=== PATIENT | male | born 1945 | race Caucasian/White ===

== ENCOUNTER → 2016-11-09 | Outpatient (CLI) | payer MEDICARE, OTHER ==
--- NOTE | 2016-11-09 13:32 | RAD ---
Right lower extremity venous Doppler ultrasound History: Right lower extremity inflammation and redness. Comparison: None. Procedure: Color Doppler, spectral Doppler, and grayscale images are obtained with and without compression in the area of the common femoral vein, superficial femoral vein - femoral vein junction, main femoral vein (superficial femoral vein) and popliteal vein. Veins of the proximal calf are also imaged. Findings: There is normal duplex flow, color flow and compressibility of all visualized vein segments. No evidence of deep venous thrombosis is present. Impression: No evidence of right lower extremity deep venous thrombosis.
== END | disposition home or self-care (01) ==
LOC: US 12:31
PROVIDERS: ATTEND Family Medicine
DX: M79.604 Pain in right leg (principal); M79.89 Other specified soft tissue disorders
CPT/HCPCS: 93971

== ENCOUNTER → 2017-02-26 | Outpatient (CLI) | payer MEDICARE, OTHER ==
--- NOTE | 2017-02-27 07:15 | RAD ---
Right lower extremity venous ultrasound, 02/26/2017 : History: Right leg swelling Duplex evaluation including grayscale, color flow and spectral Doppler analysis was performed. The femoral and popliteal veins show no filling defects to suggest DVT. The visualized deep veins in the right calf are unremarkable. IMPRESSION: There is no sonographic evidence of deep vein thrombosis in the right lower extremity
== END | disposition home or self-care (01) ==
LOC: US 17:34
PROVIDERS: ATTEND Family Medicine
DX: M79.89 Other specified soft tissue disorders (principal)
CPT/HCPCS: 93971

== ENCOUNTER 2017-05-31 17:21 | Inpatient (IN) | payer MEDICARE, OTHER ==
[~2017-05-31] VITALS: Ht 180.3 cm; Wt 108.9 kg
[2017-05-31] MEDS ORDERED: ACETAMINOPHEN 325 MG TABLET. PO PRN (19:45)
[2017-05-31] MEDS ORDERED: ONDANSETRON PF 4 MG/2 ML VIAL. IV PRN (19:45)
[2017-05-31] MEDS ORDERED: FUROSEMIDE 40 MG/4 ML VIAL. IVP ONE (20:30)
[2017-05-31 21:37] LABS: BILIRUBIN,URINE NEGATIVE (NEG); GLUCOSE,URINE NEGATIVE (NEG); NITRITE,URINE NEGATIVE (NEG); PH,URINE 6.5; PROTEIN,URINE NEGATIVE (NEG-TRACE); UROBILINOGEN,URINE 0.2 mg/dL (0.2 mg/dL)
[2017-05-31 21:41] LABS: BACTERIA,URINE 0 /HPF (0-FEW); RBC,URINE 0 /HPF (0-2); WBC,URINE 0 /HPF (0-4)
[2017-05-31 23:00] VITALS: BP 123/82
[2017-06-01] VITALS (7 sets, daily range): BP systolic 118–155; BP diastolic 52–87
[2017-06-01 00:06] LABS: ALBUMIN 3.3 g/dL (3.4-5.0); ALBUMIN/GLOBULIN RATIO 0.8 (1.0-1.7); CALCIUM 8.4 mg/dL (8.5-10.1); CREATININE 0.9 mg/dL (0.7-1.3); GFR 83.4; POTASSIUM 4.3 mmol/L (3.5-5.1); TOTAL BILIRUBIN 0.5 mg/dL (0.2-1.0); TOTAL PROTEIN 7.3 g/dL (6.4-8.2)
[2017-06-01] MEDS ORDERED: FURO40TA4 PO (02:09)
[2017-06-01 05:14] LABS: BASO # 0.1 x10^3/uL (0.0-0.2); BASO % 1 % (0-3); EOS % 2 % (0-3); HEMATOCRIT 37.3 % (39.0-53.0); HEMOGLOBIN 11.8 g/dL (13.0-17.5); LYMPH # 1.1 x10^3/uL (1.0-4.8); LYMPH % 11 % (24-48); MEAN CORPUSCULAR HEMOGLOBIN 27 pg (25-35); MEAN CORPUSCULAR HGB CONC 32 g/dL (31-37); MEAN CORPUSCULAR VOLUME 86 fL (79-100); MONO % 11 % (0-9); NEUT % 75 % (31-73); PLATELET COUNT 192 x10^3/uL (140-400); RED BLOOD COUNT 4.34 x10^6/uL (4.30-5.70); WHITE BLOOD COUNT 9.6 x10^3/uL (4.0-11.0)
[2017-06-01] MEDS: FUROSEMIDE 40 MG TABLET. PO SCH (09:54)
--- NOTE | 2017-06-01 10:40 | RAD ---
CHEST AP ONLY Clinical Indication: short of air Comparison: CT chest dated 12/07/2015 Findings: Unchanged elevation of the left hemidiaphragm. Left basilar heterogenous air space opacities. Normal pulmonary vasculature. Possible small left pleural effusion. Borderline cardiomegaly. Great vessels of the thorax are normal. No acute osseous abnormality. Incompletely visualized cervical hardware. IMPRESSION: 1. Left basilar heterogenous airspace opacities. Given the elevation of the left hemidiaphragm, findings are most likely related to atelectasis. An underlying infectious process would be difficult to exclude. 2. Possible small left pleural effusion. 3. Borderline cardiomegaly.
--- NOTE | 2017-06-01 13:17 | PDOC ---
GENERAL General: see dictated H&P. sob for some time with ernie amador as outpatient. will try to pull these results together and get pulmonary, cardiology, and neurology opinions. Problems: VITAL SIGNS Vital Signs: Vital Signs Date Time Temp Pulse Resp B/P (MAP) Pulse Ox O2 Delivery O2 Flow Rate FiO2 06/01/17 11:00 97.9 73 18 128/64 (85) 94 Room Air 97.9 05/31/17 20:00 2.0 I & O I & O Intake and Output 06/02/17 07:00 Intake Total 600 ml Balance 600 ml Intake Oral 600 ml ALLERGIES Allergies: Allergies Coded Allergies Type Severity Reaction Last Updated Verified No Known Drug Allergies 05/31/17 No MEDS Medications: Current Medications Medications (Trade) Dose Ordered Sig/Laurence Start Time Stop Time Status Last Admin Dose Admin Acetaminophen (Tylenol) 650 mg PRN Q6HRS PRN 05/31/17 19:45 Furosemide (Lasix) 40 mg DAILY 06/01/17 09:00 06/01/17 09:54 40 MG Ondansetron HCl (Zofran) 4 mg PRN Q6HRS PRN 05/31/17 19:45 LAB Lab: Laboratory Tests Test 05/31/17 21:30 05/31/17 23:30 06/01/17 02:00 Urine Collection Type Unknown Urine Color Yellow Urine Clarity Clear Urine pH 6.5 Urine Specific [place] <=1.005 Urine Protein Negative mg/dL (NEG-TRACE) Urine Glucose (UA) Negative mg/dL (NEG) Urine Ketones (Stick) Negative mg/dL (NEG) Urine Blood Negative (NEG) Urine Nitrite Negative (NEG) Urine Bilirubin Negative (NEG) Urine Urobilinogen Dipstick 0.2 mg/dL (0.2 mg/dL) Urine Leukocyte Esterase Negative (NEG) Urine RBC 0 /HPF (0-2) Urine WBC 0 /HPF (0-4) Urine Squamous Epithelial Cells None /LPF Urine Bacteria 0 /HPF (0-FEW) Sodium Level 137 mmol/L (136-145) Potassium Level 4.3 mmol/L (3.5-5.1) Chloride Level 97 mmol/L (98-107) Carbon Dioxide Level 36 mmol/L (21-32) Anion Gap 4 (6-14) Blood Urea Nitrogen 11 mg/dL (8-26) Creatinine 0.9 mg/dL (0.7-1.3) Estimated GFR (Cockcroft-Gault) 83.4 BUN/Creatinine Ratio 12 (6-20) Glucose Level 99 mg/dL (70-99) Calcium Level 8.4 mg/dL (8.5-10.1) Total Bilirubin 0.5 mg/dL (0.2-1.0) Aspartate Amino Transf (AST/SGOT) 21 U/L (15-37) Alanine Aminotransferase (ALT/SGPT) 29 U/L (16-63) Alkaline Phosphatase 72 U/L (46-116) UC-Fpu-P-Type Natriuretic Peptide 2613 pg/mL (0-124) Total Protein 7.3 g/dL (6.4-8.2) Albumin 3.3 g/dL (3.4-5.0) Albumin/Globulin Ratio 0.8 (1.0-1.7) Thyroid Stimulating Hormone (TSH) 1.504 uIU/mL (0.358-3.74) White Blood Count 9.6 x10^3/uL (4.0-11.0) Red Blood Count 4.34 x10^6/uL (4.30-5.70) Hemoglobin 11.8 g/dL (13.0-17.5) Hematocrit 37.3 % (39.0-53.0) Mean Corpuscular Volume 86 fL (79-100) Mean Corpuscular Hemoglobin 27 pg (25-35) Mean Corpuscular Hemoglobin Concent 32 g/dL (31-37) Red Cell Distribution Width 15.0 % (11.5-14.5) Platelet Count 192 x10^3/uL (140-400) Neutrophils (%) (Auto) 75 % (31-73) Lymphocytes (%) (Auto) 11 % (24-48) Monocytes (%) (Auto) 11 % (0-9) Eosinophils (%) (Auto) 2 % (0-3) Basophils (%) (Auto) 1 % (0-3) Neutrophils # (Auto) 7.2 x10^3uL (1.8-7.7) Lymphocytes # (Auto) 1.1 x10^3/uL (1.0-4.8) Monocytes # (Auto) 1.0 x10^3/uL (0.0-1.1) Eosinophils # (Auto) 0.2 x10^3/uL (0.0-0.7) Basophils # (Auto) 0.1 x10^3/uL (0.0-0.2) APPLROMEO MD Jun 01, 2017 13:17
--- NOTE | 2017-06-01 14:13 | PDOC ---
PULMONARY PROGRESS NOTES Vitals Vital Signs Date Time Temp Pulse Resp B/P (MAP) Pulse Ox O2 Delivery O2 Flow Rate FiO2 06/01/17 11:00 97.9 73 18 128/64 (85) 94 Room Air 97.9 05/31/17 20:00 2.0 Labs Laboratory Tests Test 05/31/17 21:30 05/31/17 23:30 06/01/17 02:00 Urine Collection Type Unknown Urine Color Yellow Urine Clarity Clear Urine pH 6.5 Urine Specific [place] <=1.005 Urine Protein Negative mg/dL (NEG-TRACE) Urine Glucose (UA) Negative mg/dL (NEG) Urine Ketones (Stick) Negative mg/dL (NEG) Urine Blood Negative (NEG) Urine Nitrite Negative (NEG) Urine Bilirubin Negative (NEG) Urine Urobilinogen Dipstick 0.2 mg/dL (0.2 mg/dL) Urine Leukocyte Esterase Negative (NEG) Urine RBC 0 /HPF (0-2) Urine WBC 0 /HPF (0-4) Urine Squamous Epithelial Cells None /LPF Urine Bacteria 0 /HPF (0-FEW) Sodium Level 137 mmol/L (136-145) Potassium Level 4.3 mmol/L (3.5-5.1) Chloride Level 97 mmol/L (98-107) Carbon Dioxide Level 36 mmol/L (21-32) Anion Gap 4 (6-14) Blood Urea Nitrogen 11 mg/dL (8-26) Creatinine 0.9 mg/dL (0.7-1.3) Estimated GFR (Cockcroft-Gault) 83.4 BUN/Creatinine Ratio 12 (6-20) Glucose Level 99 mg/dL (70-99) Calcium Level 8.4 mg/dL (8.5-10.1) Total Bilirubin 0.5 mg/dL (0.2-1.0) Aspartate Amino Transf (AST/SGOT) 21 U/L (15-37) Alanine Aminotransferase (ALT/SGPT) 29 U/L (16-63) Alkaline Phosphatase 72 U/L (46-116) SO-Pku-P-Type Natriuretic Peptide 2613 pg/mL (0-124) Total Protein 7.3 g/dL (6.4-8.2) Albumin 3.3 g/dL (3.4-5.0) Albumin/Globulin Ratio 0.8 (1.0-1.7) Thyroid Stimulating Hormone (TSH) 1.504 uIU/mL (0.358-3.74) White Blood Count 9.6 x10^3/uL (4.0-11.0) Red Blood Count 4.34 x10^6/uL (4.30-5.70) Hemoglobin 11.8 g/dL (13.0-17.5) Hematocrit 37.3 % (39.0-53.0) Mean Corpuscular Volume 86 fL (79-100) Mean Corpuscular Hemoglobin 27 pg (25-35) Mean Corpuscular Hemoglobin Concent 32 g/dL (31-37) Red Cell Distribution Width 15.0 % (11.5-14.5) Platelet Count 192 x10^3/uL (140-400) Neutrophils (%) (Auto) 75 % (31-73) Lymphocytes (%) (Auto) 11 % (24-48) Monocytes (%) (Auto) 11 % (0-9) Eosinophils (%) (Auto) 2 % (0-3) Basophils (%) (Auto) 1 % (0-3) Neutrophils # (Auto) 7.2 x10^3uL (1.8-7.7) Lymphocytes # (Auto) 1.1 x10^3/uL (1.0-4.8) Monocytes # (Auto) 1.0 x10^3/uL (0.0-1.1) Eosinophils # (Auto) 0.2 x10^3/uL (0.0-0.7) Basophils # (Auto) 0.1 x10^3/uL (0.0-0.2) Laboratory Tests Test 05/31/17 21:30 05/31/17 23:30 06/01/17 02:00 Urine Collection Type Unknown Urine Color Yellow Urine Clarity Clear Urine pH 6.5 Urine Specific [place] <=1.005 Urine Protein Negative mg/dL (NEG-TRACE) Urine Glucose (UA) Negative mg/dL (NEG) Urine Ketones (Stick) Negative mg/dL (NEG) Urine Blood Negative (NEG) Urine Nitrite Negative (NEG) Urine Bilirubin Negative (NEG) Urine Urobilinogen Dipstick 0.2 mg/dL (0.2 mg/dL) Urine Leukocyte Esterase Negative (NEG) Urine RBC 0 /HPF (0-2) Urine WBC 0 /HPF (0-4) Urine Squamous Epithelial Cells None /LPF Urine Bacteria 0 /HPF (0-FEW) Sodium Level 137 mmol/L (136-145) Potassium Level 4.3 mmol/L (3.5-5.1) Chloride Level 97 mmol/L (98-107) Carbon Dioxide Level 36 mmol/L (21-32) Anion Gap 4 (6-14) Blood Urea Nitrogen 11 mg/dL (8-26) Creatinine 0.9 mg/dL (0.7-1.3) Estimated GFR (Cockcroft-Gault) 83.4 BUN/Creatinine Ratio 12 (6-20) Glucose Level 99 mg/dL (70-99) Calcium Level 8.4 mg/dL (8.5-10.1) Total Bilirubin 0.5 mg/dL (0.2-1.0) Aspartate Amino Transf (AST/SGOT) 21 U/L (15-37) Alanine Aminotransferase (ALT/SGPT) 29 U/L (16-63) Alkaline Phosphatase 72 U/L (46-116) PQ-Eof-U-Type Natriuretic Peptide 2613 pg/mL (0-124) Total Protein 7.3 g/dL (6.4-8.2) Albumin 3.3 g/dL (3.4-5.0) Albumin/Globulin Ratio 0.8 (1.0-1.7) Thyroid Stimulating Hormone (TSH) 1.504 uIU/mL (0.358-3.74) White Blood Count 9.6 x10^3/uL (4.0-11.0) Red Blood Count 4.34 x10^6/uL (4.30-5.70) Hemoglobin 11.8 g/dL (13.0-17.5) Hematocrit 37.3 % (39.0-53.0) Mean Corpuscular Volume 86 fL (79-100) Mean Corpuscular Hemoglobin 27 pg (25-35) Mean Corpuscular Hemoglobin Concent 32 g/dL (31-37) Red Cell Distribution Width 15.0 % (11.5-14.5) Platelet Count 192 x10^3/uL (140-400) Neutrophils (%) (Auto) 75 % (31-73) Lymphocytes (%) (Auto) 11 % (24-48) Monocytes (%) (Auto) 11 % (0-9) Eosinophils (%) (Auto) 2 % (0-3) Basophils (%) (Auto) 1 % (0-3) Neutrophils # (Auto) 7.2 x10^3uL (1.8-7.7) Lymphocytes # (Auto) 1.1 x10^3/uL (1.0-4.8) Monocytes # (Auto) 1.0 x10^3/uL (0.0-1.1) Eosinophils # (Auto) 0.2 x10^3/uL (0.0-0.7) Basophils # (Auto) 0.1 x10^3/uL (0.0-0.2) Medications Active Scripts Medications Dose Route/Sig Max Daily Dose Days Date Category Furosemide 40 Mg Tablet 1 Tab PO DAILY 06/01/17 Reported Impression . NOTE DICTATED WILL OBTAIN MY OFFICE CONSULT NO FURTHER WORK UP AT THIS TIME SUSPECT DYSPNEA MULTIFACTORIAL, SEC PULMONARY HTN, LEFT CAMMY D DYSFUNCTION, DECONDITIONING, OBESITY PT HAD A CARD WORK UP OUTPT, DUE TO FOLLOW UP ON JUN 06. RUPERT SUAREZ MD Jun 01, 2017 14:13
--- NOTE | 2017-06-01 19:11 | HP ---
ADMIT DATE: 05/31/2017 CHIEF COMPLAINT AND HISTORY OF PRESENT ILLNESS: This 71-year-old white male who is well known to me from followup in the office. The patient had been short of breath over the last several months and has had an outpatient workup ensuing with Pulmonary and Cardiology, recently diagnosed with obstructive sleep apnea, on steroid therapy. On questioning, he had a pulmonary function testing however, but states that he had one many years ago ____. He was very short of breath even at rest in the office on the day of admission, was mildly hypoxemic at 87 %, was same when he got to the hospital requiring 2 liters of nasal cannula oxygen, and will be worked up for the increasing shortness of breath. 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 He also notes that he has had more difficulties walking with a slight torquing. PAST MEDICAL HISTORY: Remarkable for prior cervical and lumbar decompression surgeries, obstructive sleep apnea, which was recently diagnosed. MEDICATIONS: Brought with the patient, listed on the computer and have been addressed. ALLERGIES: He has no known drug allergies. SOCIAL HISTORY: He is a nonsmoker, does drink beer on a daily basis, but recently has cut back to a couple or 3 a day as his stomach will not hold this or much food. Despite all this eating less and filling up fast, he has put on a significant amount of weight of 30-40 pounds over the last several months. He has not used drugs. , lives at home with his . FAMILY HISTORY: Noncontributory. REVIEW OF SYSTEMS: As that is mentioned above. He denies any blood loss or orthopnea in addition. PHYSICAL EXAMINATION: GENERAL: He is a pleasant, well-developed, well-nourished white male, even mildly short of breath at rest. VITAL SIGNS: Stable. He is afebrile. HEAD, EYES, EARS, NOSE AND THROAT: Remarkable for glasses. NECK: Supple without any thyromegaly. CHEST: Reveals slightly decreased breath sounds bilaterally, but clear. HEART: Regular rate and rhythm without S3, S4, or murmur. ABDOMEN: Soft, nontender without hepatosplenomegaly or masses. EXTREMITIES: Without cyanosis, clubbing or edema. NEUROLOGIC: Nonfocal. IMPRESSION: 1. Increasing shortness of breath of uncertain etiology and hypoxia on admission consistent with acute respiratory failure. I wonder if this is some sort of neurological thing as he has had a negative workup done as an outpatient for pulmonary and cardiac problems with nothing found of note to date, particularly given the fact that he is beginning having difficulties using his arms and legs. 2. Other problems as listed above. PLAN: The patient has been admitted because of the early satiety and abdominal discomfort. An ultrasound of the abdomen will be checked. Pulmonary, Cardiology and Neurology will be consulted. The outpatient records will be obtained and they are not available to me at this time of this dictation. Even though I went to the office to look for them, I could not find his chart at this time, but we will look again tomorrow and the patient will be monitored, managed and treated appropriately. ROMEO MAYA MD DR: COSMO/ewelina JOB#: [id number] / [id number]
[2017-06-01] MEDS ORDERED: GABAPENTIN 300 MG CAPSULE. PO SCH (21:00)
--- NOTE | 2017-06-02 00:48 | CONS ---
DATE OF CONSULTATION: 06/01/2017 ATTENDING PHYSICIAN: Dr. Piña. REASON FOR CONSULTATION: The patient seen in pulmonary consultation at the request of Dr. Piña for increasing shortness of air. HISTORY OF PRESENT ILLNESS: The patient is a 71-year-old that presented with increasing shortness of breath. He has been short of breath for quite some time. He has had a complete workup in the past. In fact, I have seen him in the office. I do not have my office records available at this time. The patient has never smoked. There is no prior history of DVT, pulmonary embolism or asthma. He does have a left hemidiaphragm, which is nonfunctional, contributing to his dyspnea. He tells me that his shortness of breath has increased over the last 2-3 months. He has seen a probate judge at [facility]. He has had a workup including possibility of a CT of the chest and PET scan. He also recently had a polysomnogram. Apparently he is due to be set up with CPAP at home with oxygen supplementation. The patient denies a productive cough. He has noticed some lower extremity edema. The other complaint includes early satiety. He states that as soon as he eats, he feels full. PAST MEDICAL AND SURGICAL HISTORY: Otherwise remarkable for obstructive sleep apnea, recently diagnosed. Left hemidiaphragm dysfunction. Right-sided heart failure. No prior history of DVT, pulmonary embolism or coronary artery disease. PAST SURGICAL HISTORY: He has had some back surgery in the past. CURRENT MEDICATIONS: List was reviewed. Please see the MRAD. HOME MEDICATIONS: List was likewise reviewed. REVIEW OF SYSTEMS: As indicated above, otherwise, a 10-point system was reviewed and negative. PHYSICAL EXAMINATION: GENERAL: The patient was in no respiratory distress. VITAL SIGNS: Currently on room air saturation greater than 92%. HEENT: Eyes, the sclerae were nonicteric. NECK: Jugular venous distention was not elevated. No lymphadenopathy. CHEST: Full expansion. LUNGS: Adequate airway flow with no wheezes. CARDIOVASCULAR: Regular rate and rhythm, with S1, S2, no S3. ABDOMEN: Soft, nontender, obese. EXTREMITIES: No clubbing, cyanosis, some edema. NEUROLOGIC: The patient was awake, alert, following commands. A detailed neuro exam was not performed. DIAGNOSTIC DATA: I reviewed the chest x-ray. There is left hemidiaphragm elevation, cardiomegaly, no significant infiltrates or consolidations. White count was normal. Hemoglobin and hematocrit were noted. Electrolytes were noted. BNP was elevated. IMPRESSION: 1. Progressive dyspnea, suspect combination of secondary pulmonary hypertension, deconditioning, and obesity. 2. Obstructive sleep apnea, recently diagnosed. The patient is due to be set up at home with CPAP and oxygen supplementation. 3. Secondary pulmonary hypertension related to the above. 4. Acute right-sided heart failure. 5. Deconditioning. 6. Obesity. 7. Left hemidiaphragm dysfunction. 8. Mild protein malnutrition PLAN: 1. It appears the patient has had a complete workup as an outpatient. We will try to obtain recent CT chest and PET scan results. 2. Set up outpatient CPAP, obtain outpatient sleep study results. 3. I do not recommend additional workup at this time. 4. Diurese. 5. Recommend outpatient rehab. 6. Consult dietitian for mild protein malnutrition. I do appreciate the privilege in sharing in the patient's care. RUPERT SUAREZ MD DR: YAMILETH/ewelina JOB#: [id number] / [id number]
[2017-06-02 03:00] VITALS: BP 126/60
[2017-06-02 07:00] VITALS: BP 118/63
[2017-06-02] MEDS: FUROSEMIDE 40 MG TABLET. PO SCH (09:25)
[2017-06-02 11:00] VITALS: BP 120/64
--- NOTE | 2017-06-02 11:39 | RAD ---
COMPLETE ABDOMINAL ULTRASOUND Clinical History: Early satiety, pain Comparison: None. Technique: Sonographic examination of the abdomen was performed and multiple grayscale and duplex Doppler static images were obtained. Findings: The majority of the liver is visualized and appears homogeneous. The liver is borderline enlarged measuring 18.4 cm. Portal flow is hepatopetal. The common bile duct is normal in caliber, measuring 3 mm in diameter. The gallbladder wall is not thickened. There is no cholelithiasis or pericholecystic fluid. The pancreas is not well visualized due to overlying bowel gas. The right kidney is normal in morphology and echotexture and measures 13.7 x 6.0 x 4.8 cm. The left kidney is normal in morphology and echotexture and measures 11.4 x 5.8 x 4.7 cm. There is no hydronephrosis. The spleen is not well visualized due to bowel gas. Evaluation of the aorta and IVC is somewhat limited due to overlying bowel gas, but the visualized aorta measures up 2.7 cm. IMPRESSION: 1. Borderline hepatomegaly. 2. No evidence of acute cholecystitis. 3. Limited visualization of the pancreas, spleen, aorta, and IVC due to bowel gas.
--- NOTE | 2017-06-02 11:39 | PDOC ---
GENERAL General: vss and afebrile. O>I. chest clear and heart regular. desattting into low 80's during sleep per nursing. has jarod recently diagnosed as outpatient without chance to set up therapy for same to date. outside record review with main finding of severe pulmonary hypertension which might improve over time with treatment of jraod. help consultants appreciated. definitely has new jerking of extremities on exam I have not seen before and suspicious neurological component to whole picture. Problems: VITAL SIGNS Vital Signs: Vital Signs Date Time Temp Pulse Resp B/P (MAP) Pulse Ox O2 Delivery O2 Flow Rate FiO2 06/02/17 11:00 98.1 70 18 120/64 (82) 91 Nasal Cannula 2.0 98.1 I & O I & O Intake and Output 06/03/17 07:00 Intake Total 480 ml Balance 480 ml Intake Oral 480 ml ALLERGIES Allergies: Allergies Coded Allergies Type Severity Reaction Last Updated Verified No Known Drug Allergies 05/31/17 No MEDS Medications: Current Medications Medications (Trade) Dose Ordered Sig/Laurence Start Time Stop Time Status Last Admin Dose Admin Acetaminophen (Tylenol) 650 mg PRN Q6HRS PRN 05/31/17 19:45 06/01/17 23:58 650 MG Furosemide (Lasix) 40 mg DAILY 06/01/17 09:00 06/02/17 09:25 40 MG Gabapentin (Neurontin) 300 mg QHS 06/01/17 21:00 06/01/17 21:08 300 MG Ondansetron HCl (Zofran) 4 mg PRN Q6HRS PRN 05/31/17 19:45 ROMEO MAYA MD Jun 02, 2017 11:39
--- NOTE | 2017-06-02 12:54 | RAD ---
CT HEAD AND CERVICAL SPINE WITHOUT CONTRAST History: neurological causes for muscle ticks, weakness i.e. myasthenia gravis Comparison: CT neck dated 12/07/2015. Procedure: Axial images are obtained of the head from the skull base through the vertex without IV contrast. Noncontrast helical CT of the cervical spine was performed. Axial, sagittal, and coronal reconstructions were obtained. Head Findings: No mass-effect, midline shift, hemorrhage or obvious acute infarction is identified. Basilar cisterns are patent. There is mild to moderate scattered periventricular and deep white matterwhite matter hypoattenuation. This is a nonspecific finding but is commonly due to chronic small vessel ischemic disease in a patient of this age. Bone windows demonstrate no acute calvarial abnormality. The visualized paranasal sinuses appear clear. Mastoid air cells are well aerated. Cervical Spine Findings: Straightening of the normal cervical lordosis. No listhesis. Postsurgical changes of posterior fusion from the C3 through the C7 levels. No evidence of hardware failure. Moderate to severe multilevel degenerative changes of the cervical spine, worst at the C5-7 levels. There is multilevel neuroforaminal narrowing, worst at the C4-5, C5-6, and C6-7 levels, moderate to severe. Evaluation of the spinal canal is limited due to metallic streak artifact. There is no evidence of acute fracture or acute malalignment. No prevertebral soft tissue swelling is identified. Visualized soft tissues of the neck demonstrate no acute abnormalities. Unchanged enlarged left lobe of the thyroid with possible nodule. The visualized lung apices are clear. IMPRESSION: 1. No acute intracranial abnormality. 2. [id number] periventricular and deep white matter hypoattenuations are nonspecific but most likely related to chronic small vessel ischemic disease. 3. No acute fracture of the cervical spine. 4. Status post C3-C7 posterior fusion. Moderate to severe multilevel degenerative changes of the visualized spine with moderate to severe bilateral C4-5, C5-6, and C6-7 neural foraminal narrowing, not significantly changed compared to prior CT neck. Limited evaluation of the spinal canal due to metallic streak artifact. PQRS Compliance Statement: One or more of the following individualized dose reduction techniques were utilized for this examination: 1. Automated exposure control 2. Adjustment of the mA and/or kV according to patient size 3. Use of iterative reconstruction technique
--- NOTE | 2017-06-02 13:04 | PDOC ---
PULMONARY PROGRESS NOTES Subjective PT STILL SOA WITH EXERTION Vitals Vital Signs Date Time Temp Pulse Resp B/P (MAP) Pulse Ox O2 Delivery O2 Flow Rate FiO2 06/02/17 11:00 98.1 70 18 120/64 (82) 91 Nasal Cannula 2.0 98.1 ROS: No Nausea, No Chest Pain, No Abdominal Pain, No Increase Cough Lungs: Clear Cardiovascular: S1, S2 Abdomen: Soft Neuro Exam: Alert Extremities: Other (EDEMA) Skin: Warm Labs Laboratory Tests Test 05/31/17 21:30 05/31/17 23:30 06/01/17 02:00 Urine Collection Type Unknown Urine Color Yellow Urine Clarity Clear Urine pH 6.5 Urine Specific [place] <=1.005 Urine Protein Negative mg/dL (NEG-TRACE) Urine Glucose (UA) Negative mg/dL (NEG) Urine Ketones (Stick) Negative mg/dL (NEG) Urine Blood Negative (NEG) Urine Nitrite Negative (NEG) Urine Bilirubin Negative (NEG) Urine Urobilinogen Dipstick 0.2 mg/dL (0.2 mg/dL) Urine Leukocyte Esterase Negative (NEG) Urine RBC 0 /HPF (0-2) Urine WBC 0 /HPF (0-4) Urine Squamous Epithelial Cells None /LPF Urine Bacteria 0 /HPF (0-FEW) Sodium Level 137 mmol/L (136-145) Potassium Level 4.3 mmol/L (3.5-5.1) Chloride Level 97 mmol/L (98-107) Carbon Dioxide Level 36 mmol/L (21-32) Anion Gap 4 (6-14) Blood Urea Nitrogen 11 mg/dL (8-26) Creatinine 0.9 mg/dL (0.7-1.3) Estimated GFR (Cockcroft-Gault) 83.4 BUN/Creatinine Ratio 12 (6-20) Glucose Level 99 mg/dL (70-99) Calcium Level 8.4 mg/dL (8.5-10.1) Total Bilirubin 0.5 mg/dL (0.2-1.0) Aspartate Amino Transf (AST/SGOT) 21 U/L (15-37) Alanine Aminotransferase (ALT/SGPT) 29 U/L (16-63) Alkaline Phosphatase 72 U/L (46-116) OJ-Ubi-B-Type Natriuretic Peptide 2613 pg/mL (0-124) Total Protein 7.3 g/dL (6.4-8.2) Albumin 3.3 g/dL (3.4-5.0) Albumin/Globulin Ratio 0.8 (1.0-1.7) Thyroid Stimulating Hormone (TSH) 1.504 uIU/mL (0.358-3.74) White Blood Count 9.6 x10^3/uL (4.0-11.0) Red Blood Count 4.34 x10^6/uL (4.30-5.70) Hemoglobin 11.8 g/dL (13.0-17.5) Hematocrit 37.3 % (39.0-53.0) Mean Corpuscular Volume 86 fL (79-100) Mean Corpuscular Hemoglobin 27 pg (25-35) Mean Corpuscular Hemoglobin Concent 32 g/dL (31-37) Red Cell Distribution Width 15.0 % (11.5-14.5) Platelet Count 192 x10^3/uL (140-400) Neutrophils (%) (Auto) 75 % (31-73) Lymphocytes (%) (Auto) 11 % (24-48) Monocytes (%) (Auto) 11 % (0-9) Eosinophils (%) (Auto) 2 % (0-3) Basophils (%) (Auto) 1 % (0-3) Neutrophils # (Auto) 7.2 x10^3uL (1.8-7.7) Lymphocytes # (Auto) 1.1 x10^3/uL (1.0-4.8) Monocytes # (Auto) 1.0 x10^3/uL (0.0-1.1) Eosinophils # (Auto) 0.2 x10^3/uL (0.0-0.7) Basophils # (Auto) 0.1 x10^3/uL (0.0-0.2) Medications Active Scripts Medications Dose Route/Sig Max Daily Dose Days Date Category Furosemide 40 Mg Tablet 1 Tab PO DAILY 06/01/17 Reported Impression . 1. Progressive dyspnea, suspect combination of secondary pulmonary hypertension , deconditioning, and obesity. 2. Obstructive sleep apnea, recently diagnosed. The patient is due to be set up at home with CPAP and oxygen supplementation. 3. Secondary pulmonary hypertension related to the above. 4. Acute right-sided heart failure. 5. Deconditioning. 6. Obesity. 7. Left hemidiaphragm dysfunction. 8. Mild protein malnutrition Plan . AGREE WITH R/L HEARTH CATH, WILL AWAIT RESULT PRIOR TO FURTHER WORK UP THIS MAY ALL BE SEC TO S[place] START CPAP THIS SIMONA SEE ORDERS 1. It appears the patient has had a complete workup as an outpatient. We will try to obtain recent CT chest and PET scan results. 2. Set up outpatient CPAP, obtain outpatient sleep study results. 3. I do not recommend additional workup at this time. 4. Diurese. 5. Recommend outpatient rehab. 6. Consult dietitian for mild protein malnutrition. RUPERT SUAREZ MD Jun 02, 2017 13:04
--- NOTE | 2017-06-02 13:15 | RAD ---
CT LUMBAR SPINE WO CONTRAST Clinical Indication: neurological causes for muscle ticks, weakness i.e. myasthenia gravis Technique: Axial CT imaging of the lumbar spine was obtained without contrast. Coronal and sagittal reconstructions were performed. Comparison: None. Findings: Postsurgical changes of L4-L5 posterior fusion. No evidence of perihardware lucency or hardware fracture. 2 mm anterolisthesis of L4 and L5. There is no acute fracture or dislocation. Moderate multilevel degenerative disc disease. Mesenteric and soft tissue abnormality. Level by level analysis: T12-L1: No significant spinal canal stenosis or neural foraminal narrowing. L1-L2: Tiny disc bulge. No significant spinal canal stenosis or neural foraminal narrowing. L2-L3: Disc bulge. Mild spinal canal stenosis. Moderate right and severe left neural foraminal narrowing. L3-L4: Bilateral L3 laminectomies. Disc bulge. No significant spinal canal stenosis. Moderate bilateral neural foraminal narrowing. L4-L5: Bilateral L4 laminectomies. Small disc bulge. No significant spinal canal stenosis. Moderate bilateral neural foraminal narrowing. L5-S1: Small disc bulge. No significant spinal canal stenosis. Mild bilateral neural foraminal narrowing. IMPRESSION: 1. No acute fracture. 2. Postsurgical changes of L4-5 posterior fusion and L3 and L4 bilateral laminectomies. 3. Moderate multilevel degenerative changes of the visualized spine as described in detail above worst at the L2-L3 level with mild spinal canal stenosis and severe left neural foraminal narrowing. PQRS Compliance Statement: One or more of the following individualized dose reduction techniques were utilized for this examination: 1. Automated exposure control 2. Adjustment of the mA and/or kV according to patient size 3. Use of iterative reconstruction technique
--- NOTE | 2017-06-02 13:55 | PDOC ---
Provider Note Provider Note Plan for right and left heart cath tomorrow for further eval of pulm htn further diagnostic pulm htn w/u per dr. brock Will follow. thx. full note dictated. TRAY MARCELO MD Jun 02, 2017 13:55
--- NOTE | 2017-06-02 14:05 | CONS ---
DATE OF CONSULTATION: 06/02/2017 REASON FOR CONSULTATION: Dyspnea. HISTORY OF PRESENT ILLNESS: The patient is a pleasant 71-year-old gentleman who comes into the hospital with progressive dyspnea. He has had some workup through [facility] with regards to his dyspnea. 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 I only have the results of the echocardiogram which demonstrates normal LV systolic function with severe akinesis of the RV free wall as well as severe pulmonary hypertension. In this setting, Cardiology was asked to come and his dyspnea. The patient also has a history of left diaphragmatic paralysis issues and has dyspnea related to that. He also has obstructive sleep apnea. His main complaint is exertional dyspnea as well as fatigue and day time somnolence. PAST MEDICAL HISTORY: As noted above. SOCIAL HISTORY: The patient denies any alcohol, tobacco or illicit drug use. REVIEW OF SYSTEMS: Negative for 10 out of 14 systems reviewed, unless otherwise mentioned above in HPI. FAMILY HISTORY: Noncontributory. PHYSICAL EXAMINATION: VITAL SIGNS: Afebrile, heart rate 68. GENERAL: He is alert and oriented and in mild dyspnea with activity and talking. HEAD AND NECK: Unremarkable. HEART: Regular rate and rhythm without any murmurs, rubs, gallops. LUNGS: Clear to auscultation except for the bases. ABDOMEN: Obese, nontender, nondistended. EXTREMITIES: No clubbing, but he does have 2+ pitting edema up to the knee. NEUROLOGIC: No focal deficits. MUSCULOSKELETAL: No trauma. LABORATORY DATA: Unremarkable. EKG unremarkable. Echocardiogram as noted above. IMPRESSION: Dyspnea, likely multifactorial, with a contributing factor from severe pulmonary hypertension, right ventricular hypokinesis It is unclear if he has had an ischemic evaluation. We will await for the records from [facility] and plan tentatively for a right and left heart catheterization tomorrow. Thank you for this consultation. TRAY MARCELO MD DR: MURPHY/ewelina JOB#: [id number] / [id number]
[2017-06-02 15:00] VITALS: BP 123/75
--- NOTE | 2017-06-02 16:11 | PDOC2 ---
CONSULT Date of Consult Date of Consult DATE: 06/02/17 TIME: 16:08 History of Present Illness Reason for Visit: This patient is 71-year-old man who presented with complaint of shortness of breath over several months. Patient has history of obstructive sleep apnea. Patient previously has cervical, lumbar decompression surgeries he reports those were done for years back patient is a poor historian and does not remember all the details but he doesn't remember it was done at [facility]. Patient denies any worsening of neck or back pain. He denies any pain radiating from the back to his extremities are from his neck to any upper extremities. 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 Patient is also being evaluated by pulmonology and cardiology teams. Patient has severe pulmonary hypertension, right ventricular hypokinesis. She is getting further workup by getting catheterization tomorrow. Right heart failure. Patient had a repeat CT head, C Lumbar spine. There is no acute intracranial abnormality noted. There were changes noted for C3 C7 posterior fusion status post surgery. There were multilevel degenerative changes noted. Test results were also limited by metallic artifact. Past Medical History Past Medical History no sig for cva Current Medications Current Medications Current Medications Furosemide (Lasix) 40 mg 1X ONCE IVP Last administered on 05/31/17 20:39; Start 05/31/17 at 20:30; Stop 05/31/17 at 20:31; Status DC Acetaminophen (Tylenol) 650 mg PRN Q6HRS PRN PO PAIN Last administered on 06/01 23:58; Start 05/31/17 at 19:45 Ondansetron HCl (Zofran) 4 mg PRN Q6HRS PRN IV NAUSEA/VOMITING; Start at 19:45 Furosemide (Lasix) 40 mg DAILY PO Last administered on 06/02/17 09:25; Start 06/01/17 at 09:00 Gabapentin (Neurontin) 300 mg QHS PO Last administered on 06/01/17 21:08; Start 06/01/17 at 21:00 Active Scripts Active Reported Furosemide 40 Mg Tablet 1 Tab PO DAILY Allergies Allergies: Coded Allergies: No Known Drug Allergies (Unverified , 05/31/17) Physical Exam Physical Exam REVIEW OF SYSTEMS: Otherwise, not [id number] review of systems. PHYSICAL EXAMINATION: General appearance is in acute distress. HEENT: Normocephalic and nontraumatic. Eyes, nose, ears, and throat are unremarkable. Neck is supple. No lymphadenopathy. No crepitus. Cardiovascular: S1, S2, regular rate and rhythm. Pulmonary: dec sounds clear. Abdomen: Bowel sounds are positive. Abdomen is soft, nontender, and nondistended. NEUROLOGICAL EXAMINATION: Alert Oriented to time, place and person. PERRL. EOMI. CN: no focal findings. Muscle tone: within normal. Muscle strength: good strength DTR: 1- 2 Plantar reflex: Flexor response bilaterally Gait: not examined in bed. Sensory exam: no abnormal findings. No obvious cerebellar signs elicited. Vitals VITALS Vital Signs Date Time Temp Pulse Resp B/P (MAP) Pulse Ox O2 Delivery O2 Flow Rate FiO2 06/02/17 15:00 97.7 76 22 123/75 (91) 80 Nasal Cannula 2.0 97.7 Labs Labs Laboratory Tests Test 05/31/17 21:30 05/31/17 23:30 06/01/17 02:00 Urine Collection Type Unknown Urine Color Yellow Urine Clarity Clear Urine pH 6.5 Urine Specific [place] <=1.005 Urine Protein Negative mg/dL (NEG-TRACE) Urine Glucose (UA) Negative mg/dL (NEG) Urine Ketones (Stick) Negative mg/dL (NEG) Urine Blood Negative (NEG) Urine Nitrite Negative (NEG) Urine Bilirubin Negative (NEG) Urine Urobilinogen Dipstick 0.2 mg/dL (0.2 mg/dL) Urine Leukocyte Esterase Negative (NEG) Urine RBC 0 /HPF (0-2) Urine WBC 0 /HPF (0-4) Urine Squamous Epithelial Cells None /LPF Urine Bacteria 0 /HPF (0-FEW) Sodium Level 137 mmol/L (136-145) Potassium Level 4.3 mmol/L (3.5-5.1) Chloride Level 97 mmol/L (98-107) Carbon Dioxide Level 36 mmol/L (21-32) Anion Gap 4 (6-14) Blood Urea Nitrogen 11 mg/dL (8-26) Creatinine 0.9 mg/dL (0.7-1.3) Estimated GFR (Cockcroft-Gault) 83.4 BUN/Creatinine Ratio 12 (6-20) Glucose Level 99 mg/dL (70-99) Calcium Level 8.4 mg/dL (8.5-10.1) Total Bilirubin 0.5 mg/dL (0.2-1.0) Aspartate Amino Transf (AST/SGOT) 21 U/L (15-37) Alanine Aminotransferase (ALT/SGPT) 29 U/L (16-63) Alkaline Phosphatase 72 U/L (46-116) FU-Sjj-N-Type Natriuretic Peptide 2613 pg/mL (0-124) Total Protein 7.3 g/dL (6.4-8.2) Albumin 3.3 g/dL (3.4-5.0) Albumin/Globulin Ratio 0.8 (1.0-1.7) Thyroid Stimulating Hormone (TSH) 1.504 uIU/mL (0.358-3.74) White Blood Count 9.6 x10^3/uL (4.0-11.0) Red Blood Count 4.34 x10^6/uL (4.30-5.70) Hemoglobin 11.8 g/dL (13.0-17.5) Hematocrit 37.3 % (39.0-53.0) Mean Corpuscular Volume 86 fL (79-100) Mean Corpuscular Hemoglobin 27 pg (25-35) Mean Corpuscular Hemoglobin Concent 32 g/dL (31-37) Red Cell Distribution Width 15.0 % (11.5-14.5) Platelet Count 192 x10^3/uL (140-400) Neutrophils (%) (Auto) 75 % (31-73) Lymphocytes (%) (Auto) 11 % (24-48) Monocytes (%) (Auto) 11 % (0-9) Eosinophils (%) (Auto) 2 % (0-3) Basophils (%) (Auto) 1 % (0-3) Neutrophils # (Auto) 7.2 x10^3uL (1.8-7.7) Lymphocytes # (Auto) 1.1 x10^3/uL (1.0-4.8) Monocytes # (Auto) 1.0 x10^3/uL (0.0-1.1) Eosinophils # (Auto) 0.2 x10^3/uL (0.0-0.7) Basophils # (Auto) 0.1 x10^3/uL (0.0-0.2) Images Images CT LUMBAR SPINE WO CONTRAST Clinical Indication: neurological causes for muscle ticks, weakness i.e. myasthenia gravis Technique: Axial CT imaging of the lumbar spine was obtained without contrast. Coronal and sagittal reconstructions were performed. Comparison: None. Findings: Postsurgical changes of L4-L5 posterior fusion. No evidence of perihardware lucency or hardware fracture. 2 mm anterolisthesis of L4 and L5. There is no acute fracture or dislocation. Moderate multilevel degenerative disc disease. Mesenteric and soft tissue abnormality. Level by level analysis: T12-L1: No significant spinal canal stenosis or neural foraminal narrowing. L1-L2: Tiny disc bulge. No significant spinal canal stenosis or neural foraminal narrowing. L2-L3: Disc bulge. Mild spinal canal stenosis. Moderate right and severe left neural foraminal narrowing. L3-L4: Bilateral L3 laminectomies. Disc bulge. No significant spinal canal stenosis. Moderate bilateral neural foraminal narrowing. L4-L5: Bilateral L4 laminectomies. Small disc bulge. No significant spinal canal stenosis. Moderate bilateral neural foraminal narrowing. L5-S1: Small disc bulge. No significant spinal canal stenosis. Mild bilateral neural foraminal narrowing. IMPRESSION: 1. No acute fracture. 2. Postsurgical changes of L4-5 posterior fusion and L3 and L4 bilateral laminectomies. 3. Moderate multilevel degenerative changes of the visualized spine as described in detail above worst at the L2-L3 level with mild spinal canal stenosis and severe left neural foraminal narrowing. Assessment/Plan Assessment/Plan This patient is 71-year-old man who presented with complaint of shortness of breath over several months. Patient has history of obstructive sleep apnea. Patient previously has cervical, lumbar decompression surgeries he reports those were done for years back patient is a poor historian and does not remember all the details but he doesn't remember it was done at [facility]. Patient denies any worsening of neck or back pain. He denies any pain radiating from the back to his extremities are from his neck to any upper extremities. 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 Patient is also being evaluated by pulmonology and cardiology teams. Patient has severe pulmonary hypertension, right ventricular hypokinesis. She is getting further workup by getting catheterization tomorrow. Right heart failure. Patient had a repeat CT head, C Lumbar spine. There is no acute intracranial abnormality noted. There were changes noted for C3 C7 posterior fusion status post surgery. There were multilevel degenerative changes noted. Test results were also limited by metallic artifact. Status post cervical, lumbar surgery. MRIs cannot be done due to current medical condition. Check for vitamin B12, TSH. Check for any infectious or metabolic etiology. Recommend seeing neurosurgery as outpatient for follow-up. obtain previous records. PTOT evaluation. Gabapentin 300 mg twice a day. Continue medical management. XOCHITL WANG MD Jun 02, 2017 16:11
[2017-06-02 19:00] VITALS: BP 141/75
[2017-06-02] MEDS: GABAPENTIN 300 MG CAPSULE. PO SCH (20:56)
[2017-06-02 23:00] VITALS: BP 141/80
[2017-06-03] VITALS (12 sets, daily range): BP systolic 102–139; BP diastolic 60–90
[2017-06-03 04:44] LABS: BLOOD UREA NITROGEN 10 mg/dL (8-26); CARBON DIOXIDE 41 mmol/L (21-32); CHLORIDE 91 mmol/L (98-107); CREATININE 0.8 mg/dL (0.7-1.3); GFR 95.6; GLUCOSE 101 mg/dL (70-99); POTASSIUM 4.4 mmol/L (3.5-5.1); SODIUM 131 mmol/L (136-145)
--- NOTE | 2017-06-03 08:43 | PDOC ---
GENERAL General: vss and afebrile. resting quietly on bi-pap. for heart cath today to better evaluate pulmonary hypertension. exam stable. labs ok except CO2 increased to 41. Problems: VITAL SIGNS Vital Signs: Vital Signs Date Time Temp Pulse Resp B/P (MAP) Pulse Ox O2 Delivery O2 Flow Rate FiO2 06/03/17 07:00 96.8 69 16 102/69 (80) 91 BiPAP/CPAP 6.0 96.8 I & O I & O Intake and Output 06/04/17 07:00 Output Total 725 ml Balance -725 ml Output Urine Total 725 ml ALLERGIES Allergies: Allergies Coded Allergies Type Severity Reaction Last Updated Verified No Known Drug Allergies 05/31/17 No MEDS Medications: Current Medications Medications (Trade) Dose Ordered Sig/Laurence Start Time Stop Time Status Last Admin Dose Admin Acetaminophen (Tylenol) 650 mg PRN Q6HRS PRN 05/31/17 19:45 06/01/17 23:58 650 MG Furosemide (Lasix) 40 mg DAILY 06/01/17 09:00 06/02/17 09:25 40 MG Gabapentin (Neurontin) 300 mg BID 06/02/17 21:00 06/02/17 20:56 300 MG Ondansetron HCl (Zofran) 4 mg PRN Q6HRS PRN 05/31/17 19:45 LAB Lab: Laboratory Tests Test 06/03/17 03:20 Sodium Level 131 mmol/L (136-145) Potassium Level 4.4 mmol/L (3.5-5.1) Chloride Level 91 mmol/L (98-107) Carbon Dioxide Level 41 mmol/L (21-32) Anion Gap (6-14) Blood Urea Nitrogen 10 mg/dL (8-26) Creatinine 0.8 mg/dL (0.7-1.3) Estimated GFR (Cockcroft-Gault) 95.6 Glucose Level 101 mg/dL (70-99) Calcium Level 8.0 mg/dL (8.5-10.1) ROMEO MAYA MD Jun 03, 2017 08:42
[2017-06-03] MEDS: FUROSEMIDE 40 MG TABLET. PO SCH (09:00)
[2017-06-03] MEDS: GABAPENTIN 300 MG CAPSULE. PO SCH ×2 (09:00→20:46)
--- NOTE | 2017-06-03 10:37 | PDOC ---
PROGRESS NOTES Assessment Metabolic encephalopathy, better No neurological cause of pulmonary disease, we know he has COPD, pulmonary hypertension, and cardiac disease Prior cervical and lumbar spondylosis Plan No additional neurological studies are needed. Subjective No complaints Objective Vital Signs Date Time Temp Pulse Resp B/P (MAP) Pulse Ox O2 Delivery O2 Flow Rate FiO2 06/03/17 08:30 Mask 2.0 06/03/17 07:00 96.8 69 16 102/69 (80) 91 96.8 Intake and Output 06/04/17 07:00 Output Total 1225 ml Balance -1225 ml Output Urine Total 1225 ml PHYSICAL EXAM Alert. Oriented to time, place and person. PERRL. EOMI. CN: no focal findings. Muscle tone: normal. Muscle strength: 5/5 DTR: 1+ Plantar reflex: flexor Gait: not examined in bed. Sensory exam: no abnormal findings. No cerebellar signs elicited. Review of Relevant I have reviewed the following items sole (where applicable) has been applied. Labs Laboratory Tests Test 06/03/17 03:20 Sodium Level 131 mmol/L (136-145) Potassium Level 4.4 mmol/L (3.5-5.1) Chloride Level 91 mmol/L (98-107) Carbon Dioxide Level 41 mmol/L (21-32) Anion Gap (6-14) Blood Urea Nitrogen 10 mg/dL (8-26) Creatinine 0.8 mg/dL (0.7-1.3) Estimated GFR (Cockcroft-Gault) 95.6 Glucose Level 101 mg/dL (70-99) Calcium Level 8.0 mg/dL (8.5-10.1) Laboratory Tests Test 06/03/17 03:20 Sodium Level 131 mmol/L (136-145) Potassium Level 4.4 mmol/L (3.5-5.1) Chloride Level 91 mmol/L (98-107) Carbon Dioxide Level 41 mmol/L (21-32) Anion Gap (6-14) Blood Urea Nitrogen 10 mg/dL (8-26) Creatinine 0.8 mg/dL (0.7-1.3) Estimated GFR (Cockcroft-Gault) 95.6 Glucose Level 101 mg/dL (70-99) Calcium Level 8.0 mg/dL (8.5-10.1) Medications Current Medications Furosemide (Lasix) 40 mg 1X ONCE IVP Last administered on 05/31/17 20:39; Start 05/31/17 at 20:30; Stop 05/31/17 at 20:31; Status DC Acetaminophen (Tylenol) 650 mg PRN Q6HRS PRN PO PAIN Last administered on 06/01 23:58; Start 05/31/17 at 19:45 Ondansetron HCl (Zofran) 4 mg PRN Q6HRS PRN IV NAUSEA/VOMITING; Start at 19:45 Furosemide (Lasix) 40 mg DAILY PO Last administered on 06/02/17 09:25; Start 06/01/17 at 09:00 Gabapentin (Neurontin) 300 mg QHS PO Last administered on 06/01/17 21:08; Start 06/01/17 at 21:00; Stop 06/02/17 at 19:41; Status DC Gabapentin (Neurontin) 300 mg BID PO Last administered on 06/02/17 20:56; Start 06/02/17 at 21:00 Active Scripts Active Reported Furosemide 40 Mg Tablet 1 Tab PO DAILY Vitals/I & O Vital Sign - Last 24 Hours 06/02/17 06/02/17 06/02/17 06/02/17 11:00 15:00 19:00 19:45 Temp 98.1 97.7 98.1 98.1 97.7 98.1 Pulse 70 76 78 Resp 18 22 B/P (MAP) 120/64 (82) 123/75 (91) 141/75 (97) Pulse Ox 91 80 96 O2 Delivery Nasal Cannula Nasal Cannula Nasal Cannula Nasal Cannula O2 Flow Rate 2.0 2.0 2.0 3.0 06/02/17 06/03/17 06/03/17 06/03/17 23:00 03:00 07:00 07:15 Temp 98.1 98.1 96.8 98.1 98.1 96.8 Pulse 78 78 69 Resp 18 18 16 B/P (MAP) 141/80 (100) 129/73 (91) 102/69 (80) Pulse Ox 90 90 91 O2 Delivery Room Air BiPAP/CPAP BiPAP/CPAP Bi-pap O2 Flow Rate 6.0 6.0 6.0 6.0 06/03/17 08:30 O2 Delivery Mask O2 Flow Rate 2.0 Intake and Output 06/03/17 06/03/17 06/04/17 15:00 23:00 07:00 Output Total 1225 ml Balance -[address] HEAD AND CERVICAL SPINE WITHOUT CONTRAST, 06/01/17 History: neurological causes for muscle ticks, weakness i.e. myasthenia gravis Comparison: CT neck dated 12/07/2015. Procedure: Axial images are obtained of the head from the skull base through the vertex without IV contrast. Noncontrast helical CT of the cervical spine was performed. Axial, sagittal, and coronal reconstructions were obtained. Head Findings: No mass-effect, midline shift, hemorrhage or obvious acute infarction is identified. Basilar cisterns are patent. There is mild to moderate scattered periventricular and deep white matterwhite matter hypoattenuation. This is a nonspecific finding but is commonly due to chronic small vessel ischemic disease in a patient of this age. Bone windows demonstrate no acute calvarial abnormality. The visualized paranasal sinuses appear clear. Mastoid air cells are well aerated. Cervical Spine Findings: Straightening of the normal cervical lordosis. No listhesis. Postsurgical changes of posterior fusion from the C3 through the C7 levels. No evidence of hardware failure. Moderate to severe multilevel degenerative changes of the cervical spine, worst at the C5-7 levels. There is multilevel neuroforaminal narrowing, worst at the C4-5, C5-6, and C6-7 levels, moderate to severe. Evaluation of the spinal canal is limited due to metallic streak artifact. There is no evidence of acute fracture or acute malalignment. No prevertebral soft tissue swelling is identified. Visualized soft tissues of the neck demonstrate no acute abnormalities. Unchanged enlarged left lobe of the thyroid with possible nodule. The visualized lung apices are clear. IMPRESSION: 1. No acute intracranial abnormality. 2. [id number] periventricular and deep white matter hypoattenuations are nonspecific but most likely related to chronic small vessel ischemic disease. 3. No acute fracture of the cervical spine. 4. Status post C3-C7 posterior fusion. Moderate to severe multilevel degenerative changes of the visualized spine with moderate to severe bilateral C4-5, C5-6, and C6-7 neural foraminal narrowing, not significantly changed compared to prior CT neck. Limited evaluation of the spinal canal due to metallic streak artifact. GORDY RODRIGUEZ MD Jun 03, 2017 10:37
[2017-06-03] MEDS ORDERED: IOHEXOL 300 MG/ML 100ML VIAL. ONE (11:03)
[2017-06-03] MEDS ORDERED: LIDOCAINE 2% 20 ML VIAL. ONE (11:03)
[2017-06-03] MEDS ORDERED: fentaNYL PF VIAL 100 MCG/2 ML VIAL ONE (11:17)
[2017-06-03] MEDS ORDERED: MIDAZOLAM HCL/PF 2 MG/2 ML VIAL. ONE (11:18)
--- NOTE | 2017-06-03 11:18 | PDOC ---
PULMONARY PROGRESS NOTES Subjective PT STILL SOA WITH EXERTION Vitals Vital Signs Date Time Temp Pulse Resp B/P (MAP) Pulse Ox O2 Delivery O2 Flow Rate FiO2 06/03/17 08:30 Mask 2.0 06/03/17 07:00 96.8 69 16 102/69 (80) 91 96.8 ROS: No Nausea, No Chest Pain, No Abdominal Pain, No Increase Cough Lungs: Clear Cardiovascular: S1, S2 Abdomen: Soft Neuro Exam: Alert Extremities: Other (EDEMA) Skin: Warm Labs Laboratory Tests Test 06/03/17 03:20 Sodium Level 131 mmol/L (136-145) Potassium Level 4.4 mmol/L (3.5-5.1) Chloride Level 91 mmol/L (98-107) Carbon Dioxide Level 41 mmol/L (21-32) Anion Gap (6-14) Blood Urea Nitrogen 10 mg/dL (8-26) Creatinine 0.8 mg/dL (0.7-1.3) Estimated GFR (Cockcroft-Gault) 95.6 Glucose Level 101 mg/dL (70-99) Calcium Level 8.0 mg/dL (8.5-10.1) Laboratory Tests Test 06/03/17 03:20 Sodium Level 131 mmol/L (136-145) Potassium Level 4.4 mmol/L (3.5-5.1) Chloride Level 91 mmol/L (98-107) Carbon Dioxide Level 41 mmol/L (21-32) Anion Gap (6-14) Blood Urea Nitrogen 10 mg/dL (8-26) Creatinine 0.8 mg/dL (0.7-1.3) Estimated GFR (Cockcroft-Gault) 95.6 Glucose Level 101 mg/dL (70-99) Calcium Level 8.0 mg/dL (8.5-10.1) Medications Active Scripts Medications Dose Route/Sig Max Daily Dose Days Date Category Furosemide 40 Mg Tablet 1 Tab PO DAILY 06/01/17 Reported Impression . 1. Progressive dyspnea, suspect combination of secondary pulmonary hypertension , deconditioning, and obesity. 2. Obstructive sleep apnea, recently diagnosed. The patient is due to be set up at home with CPAP and oxygen supplementation. 3. Secondary pulmonary hypertension related to the above. 4. Acute right-sided heart failure. 5. Deconditioning. 6. Obesity. 7. Left hemidiaphragm dysfunction. 8. Mild protein malnutrition Plan . AGREE WITH R/L HEARTH CATH, WILL AWAIT RESULT PRIOR TO FURTHER WORK UP THIS MAY ALL BE SEC TO SANT[place]H START CPAP THIS SIMONA SEE ORDERS 1. It appears the patient has had a complete workup as an outpatient. We will try to obtain recent CT chest and PET scan results. 2. Set up outpatient CPAP, obtain outpatient sleep study results. 3. I do not recommend additional workup at this time. 4. Diurese. 5. Recommend outpatient rehab. 6. Consult dietitian for mild protein malnutrition. RUPERT SUAREZ MD Jun 03, 2017 11:17
[2017-06-03 11:47] LABS: INR 1.2 (0.8-1.1)
[2017-06-03] MEDS ORDERED: IOHEXOL 300 MG/ML 100ML VIAL. IART ONE (12:00)
[2017-06-03] MEDS ORDERED: LIDOCAINE 2% 20 ML VIAL. IJ ONE (12:00)
[2017-06-03] MEDS ORDERED: MIDAZOLAM HCL/PF 2 MG/2 ML VIAL. IV ONE (12:00)
[2017-06-03] MEDS ORDERED: fentaNYL PF VIAL 100 MCG/2 ML VIAL IV ONE (12:00)
--- NOTE | 2017-06-03 12:00 | PDOC ---
MODERATE SEDATION ASSESSMENT RISKS/ALTERNATIVES Risks/Alternatives Risks and alternatives of this type of sedation and procedure discussed with: RISK/ALTERNATIVES: Patient H & P ON CHART H & P H & P on chart and reviewed for co-morbid conditions and appropriate labs. H&P ON CHART: Yes STATUS PREG STATUS ASSESSED: N/A MEDS/ALLERGIES REVIEWED Meds/Allergies Reviewed Medications and Allergies including time and route of recently administered narcotics and sedatives. MEDS/ALLERGIES REVIEWED: Yes ASA RATING ASA RATING: III AIRWAY ASSESSMENT Airway Assessment Airway patency, oral function limitations, presence of caps, crowns, dentures, partials, and ability to extend neck assessed. AIRWAY ASSESSMENT: Yes MALLAMPATI SCORE MALLAMPATI SCORE: III PRE-SEDATION ASSESSMENT PRE-SEDATION ASSESSMENT: Yes TRAY MARCELO MD Jun 03, 2017 12:00
[2017-06-03] MEDS ORDERED: ADENOSINE 90 MG/30 ML VIAL. IV ONE (12:09)
[2017-06-03] MEDS ORDERED: ADENOSINE 90 MG in IV NORMAL SALINE 50ML 90 ML IV ONE (12:30)
[2017-06-03] MEDS ORDERED: NITROGLYCERIN SUBLINGUAL 0.4 MG BOTTLE OF 25. SL PRN (13:00)
[2017-06-03] MEDS ORDERED: 0.9 % SODIUM CHLORIDE 10 ML DISP.SYRIN. IV PRN (13:00)
--- NOTE | 2017-06-03 16:24 | CARD ---
APPROVED REPORT Procedure(s) performed: Moderate Sedation : 58 Minutes Right heart cath Left heart cath Adenosine vasodilator challenge for pulmonary HTN Coronary angiography HISTORY The patient is a 71 year-old male with a history of : chronic lung disease, hypertension, dyslipidemi a. INDICATION The indication(s) include : dyspnea, Pulmonary HTN. PROCEDURE NARRATIVE The patient was brought electively to the cardiac catheterization lab. A timeout was performed confi rming the patient's name, date of , procedure, and site of procedure. All necessary personnel w ere wearing the appropriate protective equipment and radiation monitor devices. After explaining the risks and benefits of the procedure and alternatives, informed consent was obtained. (See nursing no my for medications administered). The right groin was sterilely prepped and draped in the usual fas hion. The right groin was infiltrated with 20 mL of 2% lidocaine for subcutaneous anesthesia. A 6 F sheath was inserted into the right femoral artery without difficulty via the modified seldinger techn ique with an 18G needle and a J-tipped guidewire. Next, an 8Fr sheath was inserted in the right commo n femoral vein in similar fashion without difficulty. A PA catheter was then advanced through the right heart chambers, pressures and saturations were obta ined. An adenosine vasodilator challenge was performed to assess for reversibility of pulmonary HTN. Subsequently, right and left coronary angiography was performed using standard JR4 and JL4 diagnostic catheters. Left ventricular end diastolic pressure was obtained with a pigtail catheter and pullbac k was performed. HEMODYNAMICS: LVEDP 18 mm Hg AO: 170/79 *No gradient on LV to aortic pullback. PCWP: 20 mm Hg PA: 90/35/60---->Post adenosine challenge the mean PA pressure dropped to 42 mm Hg with stable SBP of 150 at the start and end of trial. RV: 100/15/20 RA: 12 mm Hg Jose: 8 L/min PA saturation: 75.9%--->PA sat increased to 79% post infusion with adenosine. FA saturation: 93% LEFT VENTRICULOGRAM: Deferred due to known normal EF. CORONARY ANGIOGRAPHY: LM is a large caliber vessel with a normal angiographic appearance. LAD is a large caliber vessel with normal angiographic appearance. D1- The first major diagonal has normal angiographic appearance. LCx is a moderate caliber non-dominant vessel with mild luminal irregularities. OM1 is a moderate caliber vessel with normal angiographic appearance. RCA is a large caliber dominant vessel with normal angiographic appearance. RPDA and RPL are moderate caliber vessels with normal angiographic appearance. At case completion, the right arterial sheath was removed and hemostasis was achieved with a Mynx Zelalem device. The right venous sheath was removed via manual compression. Conclusion 1. Severe pulmonary hypertension with mPA of 60, response to vasodilators with adenosine infusion and decrease in mPA to 40 mm Hg. 2. Normal cardiac output. 3. No significant coronary artery disease. Recommendations Referral to [facility] pulmonary HTN clinic No clear cardiac source of dyspnea.
[2017-06-04 03:00] VITALS: BP 138/60
[2017-06-04 07:00] VITALS: BP 162/70
--- NOTE | 2017-06-04 08:43 | PDOC ---
GENERAL General: vss and afebrile. awake and alert. heart cath reviewed and severe pulmonary hypertension with improvement with adenosine primary finding. troubles tolerating mask at night and will definitely need c-pap at dc. will get 6 minute walk to determine O2 needs with probable dc later today if all consultants agreeable. Problems: VITAL SIGNS Vital Signs: Vital Signs Date Time Temp Pulse Resp B/P (MAP) Pulse Ox O2 Delivery O2 Flow Rate FiO2 06/04/17 07:00 97.9 78 20 162/70 (100) 84 Room Air 97.9 06/04/17 03:00 6.0 ALLERGIES Allergies: Allergies Coded Allergies Type Severity Reaction Last Updated Verified No Known Drug Allergies 05/31/17 No MEDS Medications: Current Medications Medications (Trade) Dose Ordered Sig/Laurence Start Time Stop Time Status Last Admin Dose Admin Acetaminophen (Tylenol) 650 mg PRN Q6HRS PRN 05/31/17 19:45 06/01/17 23:58 650 MG Adenosine (Adenoscan) 90 mg STK-MED ONCE 06/03/17 12:09 06/03/17 12:10 DC Adenosine 90 mg/ Sodium Chloride 120 ml @ 200 mls/hr 1X ONCE 06/03/17 12:30 06/03/17 13:05 DC 06/03/17 12:30 200 MLS/HR Fentanyl Citrate (Fentanyl 2ml Vial) 100 mcg 1X ONCE 06/03/17 12:00 06/03/17 12:01 DC 06/03/17 12:00 25 MCG Furosemide (Lasix) 40 mg DAILY 06/01/17 09:00 06/02/17 09:25 40 MG Gabapentin (Neurontin) 300 mg BID 06/02/17 21:00 06/03/17 20:46 300 MG Heparin Sodium/ Sodium Chloride 1,000 unit 1X ONCE 06/03/17 12:00 06/03/17 12:01 DC 06/03/17 12:46 1,000 UNIT Iohexol (Omnipaque 300 Mg/ml) 100 ml 1X ONCE 06/03/17 12:00 06/03/17 12:01 DC 06/03/17 12:46 58 ML Lidocaine HCl 20 ml 1X ONCE 06/03/17 12:00 06/03/17 12:01 DC 06/03/17 12:46 20 ML Midazolam HCl (Versed) 2 mg 1X ONCE 06/03/17 12:00 06/03/17 12:01 DC 06/03/17 12:00 0.5 MG Nitroglycerin (Nitrostat) 0.4 mg PRN Q5MIN PRN 06/03/17 13:00 Ondansetron HCl (Zofran) 4 mg PRN Q6HRS PRN 05/31/17 19:45 Sodium Chloride (Normal Saline Flush) 3 ml QSHIFT PRN 06/03/17 13:00 LAB Lab: Laboratory Tests Test 06/03/17 11:25 Prothrombin Time 14.0 SEC (11.7-14.0) Prothromb Time International Ratio 1.2 (0.8-1.1) ROMEO MAYA MD Jun 04, 2017 08:43
[2017-06-04] MEDS: FUROSEMIDE 40 MG TABLET. PO SCH (08:45)
[2017-06-04] MEDS: GABAPENTIN 300 MG CAPSULE. PO SCH ×2 (08:45→20:34)
--- NOTE | 2017-06-04 10:11 | PDOC ---
PROGRESS NOTES Assessment Metabolic encephalopathy, better No neurological cause of pulmonary disease, we know he has COPD, pulmonary hypertension, and cardiac disease Also he has chronic left phrenic nerve palsy Prior cervical and lumbar spondylosis No other neurological degenerative condition such as Parkinson's disease Plan No additional neurological studies are needed. Discussed with Dr. Piña Subjective Patient denies complaints. Dr. Piña tells me that he has noticed the patient has had some clumsiness, for instance using a computer, and also describes some occasional myoclonus, but my exams are normal Objective Vital Signs Date Time Temp Pulse Resp B/P (MAP) Pulse Ox O2 Delivery O2 Flow Rate FiO2 06/04/17 08:53 74 20 93 Nasal Cannula 3.0 06/04/17 07:00 97.9 162/70 (100) 97.9 Intake and Output 06/05/17 07:00 Intake Total 360 ml Balance 360 ml Intake Oral 360 ml PHYSICAL EXAM Alert. Oriented to time, place and person. PERRL. EOMI. CN: no focal findings. Muscle tone: normal. Muscle strength: 5/5 DTR: 1+ Plantar reflex: flexor Gait: not examined in bed. Sensory exam: no abnormal findings. No cerebellar signs elicited. Review of Relevant I have reviewed the following items sole (where applicable) has been applied. Labs Laboratory Tests Test 06/03/17 03:20 06/03/17 11:25 Sodium Level 131 mmol/L (136-145) Potassium Level 4.4 mmol/L (3.5-5.1) Chloride Level 91 mmol/L (98-107) Carbon Dioxide Level 41 mmol/L (21-32) Anion Gap (6-14) Blood Urea Nitrogen 10 mg/dL (8-26) Creatinine 0.8 mg/dL (0.7-1.3) Estimated GFR (Cockcroft-Gault) 95.6 Glucose Level 101 mg/dL (70-99) Calcium Level 8.0 mg/dL (8.5-10.1) Prothrombin Time 14.0 SEC (11.7-14.0) Prothromb Time International Ratio 1.2 (0.8-1.1) Laboratory Tests Test 06/03/17 11:25 Prothrombin Time 14.0 SEC (11.7-14.0) Prothromb Time International Ratio 1.2 (0.8-1.1) Medications Current Medications Furosemide (Lasix) 40 mg 1X ONCE IVP Last administered on 05/31/17 20:39; Start 05/31/17 at 20:30; Stop 05/31/17 at 20:31; Status DC Acetaminophen (Tylenol) 650 mg PRN Q6HRS PRN PO PAIN Last administered on 06/01 23:58; Start 05/31/17 at 19:45 Ondansetron HCl (Zofran) 4 mg PRN Q6HRS PRN IV NAUSEA/VOMITING; Start at 19:45 Furosemide (Lasix) 40 mg DAILY PO Last administered on 06/04/17 08:45; Start 06/01/17 at 09:00 Gabapentin (Neurontin) 300 mg QHS PO Last administered on 06/01/17 21:08; Start 06/01/17 at 21:00; Stop 06/02/17 at 19:41; Status DC Gabapentin (Neurontin) 300 mg BID PO Last administered on 06/04/17 08:45; Start 06/02/17 at 21:00 Heparin Sodium/ Sodium Chloride 1,000 ml @ As Directed STK-MED ONCE .ROUTE ; Start 06/03/17 at 11:03; Stop 06/03/17 at 11:04; Status DC Iohexol (Omnipaque 300 Mg/ml) 100 ml STK-MED ONCE .ROUTE ; Start 06/03/17 at 11 :03; Stop 06/03/17 at 11:04; Status DC Lidocaine HCl 20 ml STK-MED ONCE .ROUTE ; Start 06/03/17 at 11:03; Stop at 11:04; Status DC Fentanyl Citrate (Fentanyl 2ml Vial) 100 mcg STK-MED ONCE .ROUTE ; Start at 11:17; Stop 06/03/17 at 11:18; Status DC Midazolam HCl (Versed) 2 mg STK-MED ONCE .ROUTE ; Start 06/03/17 at 11:18; Stop 06/03/17 at 11:19; Status DC Heparin Sodium/ Sodium Chloride 1,000 unit 1X ONCE IART Last administered on 06/03/17 12:46; Start 06/03/17 at 12:00; Stop 06/03/17 at 12:01; Status DC Midazolam HCl (Versed) 2 mg 1X ONCE IV Last administered on 06/03/17 12:00; Start 06/03/17 at 12:00; Stop 06/03/17 at 12:01; Status DC Fentanyl Citrate (Fentanyl 2ml Vial) 100 mcg 1X ONCE IV Last administered on 06/03/17 12:00; Start 06/03/17 at 12:00; Stop 06/03/17 at 12:01; Status DC Iohexol (Omnipaque 300 Mg/ml) 100 ml 1X ONCE IART Last administered on 12:46; Start 06/03/17 at 12:00; Stop 06/03/17 at 12:01; Status DC Lidocaine HCl 20 ml 1X ONCE IJ Last administered on 06/03/17 12:46; Start 06/03/17 at 12:00; Stop 06/03/17 at 12:01; Status DC Adenosine (Adenoscan) 90 mg STK-MED ONCE IV ; Start 06/03/17 at 12:09; Stop at 12:10; Status DC Adenosine 90 mg/ Sodium Chloride 120 ml @ 200 mls/hr 1X ONCE IV Last administered on 06/03/17 12:30; Start 06/03/17 at 12:30; Stop 06/03/17 at 13 :05; Status DC Sodium Chloride (Normal Saline Flush) 3 ml QSHIFT PRN IV AFTER MEDS AND BLOOD DRAWS; Start 06/03/17 at 13:00 Nitroglycerin (Nitrostat) 0.4 mg PRN Q5MIN PRN SL CHEST PAIN; Start 06/03/17 at 13:00 Active Scripts Active Reported Furosemide 40 Mg Tablet 1 Tab PO DAILY Vitals/I & O Vital Sign - Last 24 Hours 06/03/17 06/03/17 06/03/17 06/03/17 11:00 12:00 12:30 12:36 Temp 97.5 97.5 Pulse 68 88 Resp 18 22 22 B/P (MAP) 102/63 (76) Pulse Ox 96 97 96 O2 Delivery Venturi Mask Simple Mask Nasal Cannula Simple Mask O2 Flow Rate 6.0 5.0 2.0 5.0 06/03/17 06/03/17 06/03/17 06/03/17 13:00 13:07 13:16 13:31 Temp 96.6 96.6 Pulse 80 72 75 Resp 20 B/P (MAP) 122/73 (89) 124/73 (90) 125/77 (93) Pulse Ox 92 93 95 O2 Delivery Simple Mask Nasal Cannula Nasal Cannula Nasal Cannula O2 Flow Rate 3.0 2.0 2.0 2.0 06/03/17 06/03/17 06/03/17 06/03/17 13:46 14:01 14:31 19:00 Temp 98.4 98.4 Pulse 72 74 73 82 Resp 20 B/P (MAP) 136/60 (85) 120/84 (96) 121/73 (89) 138/90 (106) Pulse Ox 85 94 93 O2 Delivery Nasal Cannula Nasal Cannula Nasal Cannula Nasal Cannula O2 Flow Rate 2.0 2.0 2.0 2.0 06/03/17 06/03/17 06/04/17 06/04/17 20:00 22:52 03:00 07:00 Temp 98.6 98.5 97.9 98.6 98.5 97.9 Pulse 77 66 78 Resp 18 18 20 B/P (MAP) 139/70 (93) 138/60 (86) 162/70 (100) Pulse Ox 90 92 84 O2 Delivery Nasal Cannula BiPAP/CPAP Nasal Cannula Room Air O2 Flow Rate 2.0 6.0 6.0 06/04/17 06/04/17 07:30 08:53 Pulse 74 Resp 20 Pulse Ox 93 O2 Delivery Bi-pap Nasal Cannula O2 Flow Rate 3.0 Intake and Output 06/04/17 06/04/17 06/05/17 15:00 23:00 07:00 Intake Total 360 ml Balance 360 ml GORDY RODRIGUEZ MD Jun 04, 2017 10:11
[2017-06-04 11:00] VITALS: BP 129/72
--- NOTE | 2017-06-04 14:19 | PDOC ---
PULMONARY PROGRESS NOTES Subjective PT STILL SOA WITH EXERTION Vitals Vital Signs Date Time Temp Pulse Resp B/P (MAP) Pulse Ox O2 Delivery O2 Flow Rate FiO2 06/04/17 11:00 97.6 77 20 129/72 (91) 95 Nasal Cannula 2.0 97.6 ROS: No Nausea, No Chest Pain, No Abdominal Pain, No Increase Cough Lungs: Clear Cardiovascular: S1, S2 Abdomen: Soft Neuro Exam: Alert Extremities: Other (EDEMA) Skin: Warm Labs Laboratory Tests Test 06/03/17 03:20 06/03/17 11:25 Sodium Level 131 mmol/L (136-145) Potassium Level 4.4 mmol/L (3.5-5.1) Chloride Level 91 mmol/L (98-107) Carbon Dioxide Level 41 mmol/L (21-32) Anion Gap (6-14) Blood Urea Nitrogen 10 mg/dL (8-26) Creatinine 0.8 mg/dL (0.7-1.3) Estimated GFR (Cockcroft-Gault) 95.6 Glucose Level 101 mg/dL (70-99) Calcium Level 8.0 mg/dL (8.5-10.1) Prothrombin Time 14.0 SEC (11.7-14.0) Prothromb Time International Ratio 1.2 (0.8-1.1) Medications Active Scripts Medications Dose Route/Sig Max Daily Dose Days Date Category Furosemide 40 Mg Tablet 1 Tab PO DAILY 06/01/17 Reported Impression . 1. Progressive dyspnea due to severe pulmonary hypertension, deconditioning, and obesity. 2. Obstructive sleep apnea, recently diagnosed. The patient is due to be set up at home with CPAP and oxygen supplementation. 3. suspected COPD 4. Acute right-sided heart failure. 5. Deconditioning. 6. Obesity. 7. Left hemidiaphragm dysfunction. 8. Mild protein malnutrition Plan . S/P RIGHT HEARTH CATH, FINDINGS SUGGEST PRIMARY PULMONARY HTN. WILL REVIEW PREVIOUS WORK UP 1. We will try to obtain recent CT chest and PET scan results. 2. Set up outpatient CPAP, obtain outpatient sleep study results. 3. PFTS 4. Diurese. 5. Recommend outpatient rehab. 6. Consult dietitian for mild protein malnutrition. 7. Will need pulmonary vasodilators as OP XOCHITL HERNDON MD Jun 04, 2017 14:19
[2017-06-04 15:00] VITALS: BP 123/63
--- NOTE | 2017-06-04 16:58 | RAD ---
CT of the abdomen and pelvis without contrast, 06/04/2017: History: Shortness of breath, pulmonary hypertension Noncontrast scans were obtained as requested and compared to a study from 12/07/2015. There is mild calcific plaquing of the thoracic aorta. The aortic root measures 3.9 cm in width. The main pulmonary artery is enlarged measuring 4.5 cm in width. Minimal coronary artery calcifications noted. The heart is mildly enlarged. Small mediastinal lymph nodes are seen without evidence of pathologic enlargement. Several calcified hilar nodes are present on the left. There is moderate chronic elevation of the left hemidiaphragm. There is moderate ongoing or recurrent left basilar atelectasis involving primarily the left lower lobe. This has worsened since the previous study. There is linear atelectasis and/or scarring in the right base, worse than on the previous study. No significant pleural fluid is evident. IMPRESSION: 1. Chronic elevation of the left hemidiaphragm with moderate ongoing or recurrent left lower lobe atelectasis. 2. Mild right basilar linear atelectasis and/or scarring. 3. Cardiomegaly. 4. Enlargement of the main pulmonary artery compatible with the given history of pulmonary hypertension. PQRS Compliance Statement: One or more of the following individualized dose reduction techniques were utilized for this examination: 1. Automated exposure control 2. Adjustment of the mA and/or kV according to patient size 3. Use of iterative reconstruction technique
[2017-06-04 19:00] VITALS: BP 118/62
[2017-06-04 23:00] VITALS: BP 122/65
[2017-06-05 03:00] VITALS: BP 108/64
[2017-06-05 07:00] VITALS: BP 143/74
--- NOTE | 2017-06-05 08:28 | PDOC ---
GENERAL General: see discharge summary. Problems: VITAL SIGNS Vital Signs: Vital Signs Date Time Temp Pulse Resp B/P (MAP) Pulse Ox O2 Delivery O2 Flow Rate FiO2 06/05/17 07:00 98.9 62 20 143/74 (97) 95 BiPAP/CPAP 6.0 98.9 ALLERGIES Allergies: Allergies Coded Allergies Type Severity Reaction Last Updated Verified No Known Drug Allergies 05/31/17 No MEDS Medications: Current Medications Medications (Trade) Dose Ordered Sig/Laurence Start Time Stop Time Status Last Admin Dose Admin Acetaminophen (Tylenol) 650 mg PRN Q6HRS PRN 05/31/17 19:45 06/01/17 23:58 650 MG Adenosine (Adenoscan) 90 mg STK-MED ONCE 06/03/17 12:09 06/03/17 12:10 DC Adenosine 90 mg/ Sodium Chloride 120 ml @ 200 mls/hr 1X ONCE 06/03/17 12:30 06/03/17 13:05 DC 06/03/17 12:30 200 MLS/HR Fentanyl Citrate (Fentanyl 2ml Vial) 100 mcg 1X ONCE 06/03/17 12:00 06/03/17 12:01 DC 06/03/17 12:00 25 MCG Furosemide (Lasix) 40 mg DAILY 06/01/17 09:00 06/04/17 08:45 40 MG Gabapentin (Neurontin) 300 mg BID 06/02/17 21:00 06/04/17 20:34 300 MG Heparin Sodium/ Sodium Chloride 1,000 unit 1X ONCE 06/03/17 12:00 06/03/17 12:01 DC 06/03/17 12:46 1,000 UNIT Iohexol (Omnipaque 300 Mg/ml) 100 ml 1X ONCE 06/03/17 12:00 06/03/17 12:01 DC 06/03/17 12:46 58 ML Lidocaine HCl 20 ml 1X ONCE 06/03/17 12:00 06/03/17 12:01 DC 06/03/17 12:46 20 ML Midazolam HCl (Versed) 2 mg 1X ONCE 06/03/17 12:00 06/03/17 12:01 DC 06/03/17 12:00 0.5 MG Nitroglycerin (Nitrostat) 0.4 mg PRN Q5MIN PRN 06/03/17 13:00 Ondansetron HCl (Zofran) 4 mg PRN Q6HRS PRN 05/31/17 19:45 Sodium Chloride (Normal Saline Flush) 3 ml QSHIFT PRN 06/03/17 13:00 ROMEO MAYA MD Jun 05, 2017 08:28
--- NOTE | 2017-06-05 08:51 | PDOC ---
PROGRESS NOTES Assessment Metabolic encephalopathy, better No neurological cause of pulmonary disease, we know he has COPD, pulmonary hypertension, and cardiac disease Also he has chronic left phrenic nerve palsy Prior cervical and lumbar spondylosis No other neurological degenerative condition such as Parkinson's disease. I do see some evidence of essential tremor on today's exam. Plan I don't want to start treatment for essential tremor during this acute illness, have asked patient to come follow-up in the office to consider treatment Subjective Wants to go home Objective Vital Signs Date Time Temp Pulse Resp B/P (MAP) Pulse Ox O2 Delivery O2 Flow Rate FiO2 06/05/17 07:00 98.9 62 20 143/74 (97) 95 BiPAP/CPAP 6.0 98.9 PHYSICAL EXAM Alert. Oriented to time, place and person. PERRL. EOMI. CN: no focal findings. Muscle tone: normal. Muscle strength: 5/5 DTR: 1+ Plantar reflex: flexor Gait: not examined in bed. Sensory exam: no abnormal findings. No cerebellar signs elicited. Mild postural tremor Review of Relevant I have reviewed the following items sole (where applicable) has been applied. Labs Laboratory Tests Test 06/03/17 11:25 Prothrombin Time 14.0 SEC (11.7-14.0) Prothromb Time International Ratio 1.2 (0.8-1.1) Medications Current Medications Furosemide (Lasix) 40 mg 1X ONCE IVP Last administered on 05/31/17 20:39; Start 05/31/17 at 20:30; Stop 05/31/17 at 20:31; Status DC Acetaminophen (Tylenol) 650 mg PRN Q6HRS PRN PO PAIN Last administered on 06/01 23:58; Start 05/31/17 at 19:45 Ondansetron HCl (Zofran) 4 mg PRN Q6HRS PRN IV NAUSEA/VOMITING; Start at 19:45 Furosemide (Lasix) 40 mg DAILY PO Last administered on 06/04/17 08:45; Start 06/01/17 at 09:00 Gabapentin (Neurontin) 300 mg QHS PO Last administered on 06/01/17 21:08; Start 06/01/17 at 21:00; Stop 06/02/17 at 19:41; Status DC Gabapentin (Neurontin) 300 mg BID PO Last administered on 06/04/17 20:34; Start 06/02/17 at 21:00 Heparin Sodium/ Sodium Chloride 1,000 ml @ As Directed STK-MED ONCE .ROUTE ; Start 06/03/17 at 11:03; Stop 06/03/17 at 11:04; Status DC Iohexol (Omnipaque 300 Mg/ml) 100 ml STK-MED ONCE .ROUTE ; Start 06/03/17 at 11 :03; Stop 06/03/17 at 11:04; Status DC Lidocaine HCl 20 ml STK-MED ONCE .ROUTE ; Start 06/03/17 at 11:03; Stop at 11:04; Status DC Fentanyl Citrate (Fentanyl 2ml Vial) 100 mcg STK-MED ONCE .ROUTE ; Start at 11:17; Stop 06/03/17 at 11:18; Status DC Midazolam HCl (Versed) 2 mg STK-MED ONCE .ROUTE ; Start 06/03/17 at 11:18; Stop 06/03/17 at 11:19; Status DC Heparin Sodium/ Sodium Chloride 1,000 unit 1X ONCE IART Last administered on 06/03/17 12:46; Start 06/03/17 at 12:00; Stop 06/03/17 at 12:01; Status DC Midazolam HCl (Versed) 2 mg 1X ONCE IV Last administered on 06/03/17 12:00; Start 06/03/17 at 12:00; Stop 06/03/17 at 12:01; Status DC Fentanyl Citrate (Fentanyl 2ml Vial) 100 mcg 1X ONCE IV Last administered on 06/03/17 12:00; Start 06/03/17 at 12:00; Stop 06/03/17 at 12:01; Status DC Iohexol (Omnipaque 300 Mg/ml) 100 ml 1X ONCE IART Last administered on 12:46; Start 06/03/17 at 12:00; Stop 06/03/17 at 12:01; Status DC Lidocaine HCl 20 ml 1X ONCE IJ Last administered on 06/03/17 12:46; Start 06/03/17 at 12:00; Stop 06/03/17 at 12:01; Status DC Adenosine (Adenoscan) 90 mg STK-MED ONCE IV ; Start 06/03/17 at 12:09; Stop at 12:10; Status DC Adenosine 90 mg/ Sodium Chloride 120 ml @ 200 mls/hr 1X ONCE IV Last administered on 06/03/17t 12:30; Start 06/03/17 at 12:30; Stop 06/03/17 at 13 :05; Status DC Sodium Chloride (Normal Saline Flush) 3 ml QSHIFT PRN IV AFTER MEDS AND BLOOD DRAWS; Start 06/03/17 at 13:00 Nitroglycerin (Nitrostat) 0.4 mg PRN Q5MIN PRN SL CHEST PAIN; Start 06/03/17 at 13:00 Active Scripts Active Reported Furosemide 40 Mg Tablet 1 Tab PO DAILY Vitals/I & O Vital Sign - Last 24 Hours 06/04/17 06/04/17 06/04/17 06/04/17 08:53 11:00 15:00 19:00 Temp 97.6 98.3 98.4 97.6 98.3 98.4 Pulse 74 77 75 78 Resp 20 20 20 20 B/P (MAP) 129/72 (91) 123/63 (83) 118/62 (80) Pulse Ox 93 95 97 94 O2 Delivery Nasal Cannula Nasal Cannula Nasal Cannula Nasal Cannula O2 Flow Rate 3.0 2.0 2.0 2.0 06/04/17 06/04/17 06/05/17 06/05/17 19:53 23:00 03:00 07:00 Temp 97.7 97.5 98.9 97.7 97.5 98.9 Pulse 64 70 62 Resp 16 20 20 B/P (MAP) 122/65 (84) 108/64 (79) 143/74 (97) Pulse Ox 93 91 95 O2 Delivery Nasal Cannula BiPAP/CPAP Nasal Cannula BiPAP/CPAP O2 Flow Rate 3.0 3.0 2.0 6.0 GORDY RODRIGUEZ MD Jun 05, 2017 08:51
[2017-06-05] MEDS: GABAPENTIN 300 MG CAPSULE. PO SCH (09:02)
[2017-06-05] MEDS: FUROSEMIDE 40 MG TABLET. PO SCH (09:02)
--- NOTE | 2017-06-05 09:11 | RAD ---
Ventilation/perfusion lung scan, 06/04/2017: History: Severe pulmonary hypertension The ventilation study was performed utilizing 9.0 mCi of xenon-133. Activity in the lungs is mildly heterogeneous. There is decreased activity in the left lower chest compatible with the known diaphragmatic elevation and the enlarged heart. There is minimal patchy retention of activity in the lungs on the washout phase. Perfusion imaging was performed utilizing 5.0 mCi of technetium 99m MAA. A similar pattern of activity is present in the lungs. No segmental or unmatched perfusion defects are seen. IMPRESSION: There are no VQ findings to suggest pulmonary emboli.
--- NOTE | 2017-06-05 10:10 | DS ---
DATE OF DISCHARGE: 06/05/2017 DATE OF ADMISSION: 05/31/2017 DATE OF DISCHARGE: 06/05/2017 PRIMARY DIAGNOSIS: Acute respiratory failure. ADDITIONAL DIAGNOSES: Shortness of breath, severe pulmonary hypertension, obstructive sleep apnea recently diagnosed, acute right-sided heart failure, deconditioning, obesity, left hemidiaphragm dysfunction, mild protein calorie malnutrition. CHIEF COMPLAINT AND HISTORY OF PRESENT ILLNESS: A 71-year-old white male was admitted with progressive shortness of breath. An exhaustive outpatient workup not outlining exactly the etiology. SUMMARY OF STAY: The patient was admitted, multiple consults were done including Neurology to make sure this was not on a neurological basis as he had some tremors and difficulties using his hands, which they did not feel, after workup, was neurological in basis and that he may have just an essentially tremor. Cardiology saw him, did take him for heart catheterization showing no significant coronary disease, but significant pulmonary hypertension with decreasing pressures with adenosine administration, and suggestion of sending him off to Pulmonary Hypertension Clinic here in town after discharge. He was seen by Pulmonary, reviewed outpatient workup and felt this was all pulmonary hypertension predominantly in nature with acute right-sided heart failure and deconditioning and obesity. He was diuresed during the stay with at least 11 pounds of fluid taken off. His O2 needs were down to 2 liters at rest and had a 6-minute walk, which was not available at the time of my dictation, to determine his needs with exertion. He was felt ready for dismissal and this was accomplished. DISPOSITION: The patient is discharged to home. DIET: Regular diet. ACTIVITY: As tolerated. FOLLOWUP: Office in 1 week. DISCHARGE MEDICATIONS: Listed on the med rec. O2 needs will be determined by the 6-minute walk, which again is not available, and arranged at the time of discharge and CPAP for the obstructive sleep apnea will be set up as well as suggestion on who to see in the Pulmonary Hypertension Clinic after discharge. ROMEO MAYA MD DR: COSMO/ewelina JOB#: [id number] / [id number]
[2017-06-05 11:00] VITALS: BP 123/67
--- NOTE | 2017-06-05 14:07 | PDOC ---
PULMONARY PROGRESS NOTES Subjective no new complain Vitals Vital Signs Date Time Temp Pulse Resp B/P (MAP) Pulse Ox O2 Delivery O2 Flow Rate FiO2 06/05/17 11:00 98.7 71 20 123/67 (85) 95 Nasal Cannula 2.0 98.7 ROS: No Nausea, No Chest Pain, No Abdominal Pain, No Increase Cough General: Alert, No acute distress Lungs: Clear Cardiovascular: S1, S2 Abdomen: Soft Neuro Exam: Alert Extremities: Other (1+edema) Skin: Warm Medications Active Scripts Medications Dose Route/Sig Max Daily Dose Days Date Category Furosemide 40 Mg Tablet 1 Tab PO DAILY 06/01/17 Reported Impression . 1. Progressive dyspnea due to severe primary pulmonary hypertension, deconditioning, and obesity.( right heart cath c/w Primary Pulmonary Arterial HTN) 2. Obstructive sleep apnea, recently diagnosed. The patient is due to be set up at home with CPAP and oxygen supplementation. 3. suspected COPD 4. Acute right-sided heart failure. 5. Deconditioning. 6. Obesity. 7. Left hemidiaphragm dysfunction. 8. Mild protein malnutrition Plan . S/P RIGHT HEARTH CATH, FINDINGS SUGGEST PRIMARY PULMONARY HTN. 1. CT chest with no ILD. VQ with no PE 2. Set up outpatient CPAP, obtain outpatient sleep study results. 3. PFTS 4. Diurese. 5. Recommend outpatient rehab. oxygen 3 litre at rest and 4 with exercise 6. Consult dietitian for mild protein malnutrition. 7. Will need pulmonary vasodilators as OP/ . f/u with Dr Reina on Jun 20 XOCHITL HERNDON MD Jun 05, 2017 14:07
[2017-06-05 15:00] VITALS: BP 123/67
--- NOTE | 2017-06-05 15:44 | RESP ---
DATE OF SERVICE: 06/05/2017 PULMONARY FUNCTION TEST Referred by myself. The patient's FVC was 1.73, which is 38% predicted and FEV1 1.1, which is 33% predicted. The FEV1/FVC ratio was normal. There was no response to bronchodilators. Lung volumes showed a total lung capacity of 53% predicted and residual volume was severely low at 14% predicted. The patient's diffusion capacity was 62% predicted. IMPRESSION: 1. No significant obstructive airway disease. 2. Spirometry and lung volumes are consistent with severe restrictive pattern. The patient's expiratory reserve volume was very low and probably related to pseudoobstruction from patient's obesity. 3. Moderately reduced diffusion capacity. 4. If clinical suspicion for interstitial lung disease is high, then consider clinical workup. XOCHITL HERNDON MD DR: DENISE/ewelina JOB#: [id number] / [id number]
== END 2017-06-05 16:45 | disposition home or self-care (01) | DRG 286 ==
LOC: 4 NORTH 18:40
PROVIDERS: ADMIT Family Medicine; ATTEND Family Medicine
PROC: 5A09357 Assistance with Respiratory Ventilation, Less than 24 Consecutive Hours, Continuous Positive Airway Pressure (ICD-10-PCS; 2017-06-01)
PROC: B2111ZZ Fluoroscopy of Multiple Coronary Arteries using Low Osmolar Contrast (ICD-10-PCS; principal; 2017-06-04)
PROC: 4A023N8 Measurement of Cardiac Sampling and Pressure, Bilateral, Percutaneous Approach (ICD-10-PCS; 2017-06-04)
DX: I50.31 Acute diastolic (congestive) heart failure (principal); J96.01 Acute respiratory failure with hypoxia; G93.41 Metabolic encephalopathy; I27.0 Primary pulmonary hypertension; E44.1 Mild protein-calorie malnutrition; I11.0 Hypertensive heart disease with heart failure; J44.9 Chronic obstructive pulmonary disease, unspecified; Z68.33 Body mass index [BMI] 33.0-33.9, adult; E66.9 Obesity, unspecified; G47.33 Obstructive sleep apnea (adult) (pediatric); Z98.1 Arthrodesis status; E78.5 Hyperlipidemia, unspecified; G58.9 Mononeuropathy, unspecified
CPT/HCPCS: 36415; 70450; 71010; 71250; 72125; 72131; 76700; 78582; 80048; 80053; 81001; 83880; 84443; 85025; 85610; 93453; 94060; 94620; 94660; 94729; 96374; 99152; 99153; A9540; A9558; C1769; C1771; C1773; C1892; G0269; J0153; J1644; J1940; J2250; J3010; Q9967; J2001